=== PATIENT | female | born 1955 | race Caucasian/White ===

== ENCOUNTER → 2017-11-23 | Outpatient (CLI) | payer OTHER ==
[~2017-11-23] MED LIST: SIMV40TA3 PO
== END | disposition home or self-care (01) ==
LOC: STAR 10:52
PROVIDERS: ATTEND Orthopaedic Surgery
DX: Z01.818 Encounter for other preprocedural examination (principal); M25.562 Pain in left knee
CPT/HCPCS: 93005

== ENCOUNTER 2017-12-06 05:36 | Day surgery (SDC) | payer OTHER ==
[2017-11-23 11:27] VITALS: BP 120/78
[~2017-12-06] VITALS: Ht 170.2 cm; Wt 111.0 kg
[2017-12-06] MEDS ORDERED: LACTATED RINGERS 1,000 ML IV SCH (05:58)
[2017-12-06] MEDS ORDERED: LIDOCAINE 1%-EPI 1:100K, 30ML ONE (06:16)
[2017-12-06] MEDS ORDERED: ROPIvacaine/PF 0.5%, 30 ML ONE (06:16)
[2017-12-06] MEDS ORDERED: MIDAZOLAM 1 MG/ML, 2ML ONE (06:39)
[2017-12-06] MEDS ORDERED: FENTANYL PF 100 MCG/2ML ONE ×2 (06:39→07:47)
[2017-12-06] MEDS ORDERED: KETOROLAC 30 MG/1 ML ONE (07:00)
[2017-12-06] MEDS ORDERED: DEXAMETHASONE 4 MG/ML, 1ML ONE (07:17)
[2017-12-06] MEDS ORDERED: CEFAZOLIN 1,000 MG ONE (07:17)
[2017-12-06] MEDS ORDERED: ONDANSETRON 2MG/ML, 2ML ONE ×2 (07:17→08:22)
[2017-12-06] MEDS ORDERED: PROPOFOL 10 MG/ML, 20ML ONE (07:17)
[2017-12-06] MEDS ORDERED: ONDANSETRON ODT 8 MG PO PRN (07:30)
[2017-12-06] MEDS ORDERED: OXYcodone 5 MG/5 ML ORAL.SOL UDC PO PRN (07:30)
[2017-12-06] MEDS ORDERED: ONDANSETRON 2MG/ML, 2ML IV PRN (07:30)
[2017-12-06] MEDS ORDERED: ACETAMINOPHEN 325 MG TABLET PO PRN (07:30)
[2017-12-06] MEDS ORDERED: PROMETHAZINE 25 MG/ML, 1ML IV PRN (07:30)
[2017-12-06] MEDS ORDERED: ACETAMINOPHEN 650 MG/20.3 ML UDC ONE (07:47)
[2017-12-06] MEDS ORDERED: ACETAMINOPHEN 325 MG TABLET ONE (07:47)
[2017-12-06] MEDS: FENTANYL PF 100 MCG/2ML IV PRN ×4 (07:53→08:13)
== END 2017-12-06 10:10 | disposition home or self-care (01) ==
LOC: OUT 05:36
PROVIDERS: ATTEND Orthopaedic Surgery
DX: S83.242A Other tear of medial meniscus, current injury, left knee, initial encounter (principal); S83.282A Other tear of lateral meniscus, current injury, left knee, initial encounter; M65.862 Other synovitis and tenosynovitis, left lower leg; M94.262 Chondromalacia, left knee; E78.5 Hyperlipidemia, unspecified; X58.XXXA Exposure to other specified factors, initial encounter; Y93.89 Activity, other specified; Y92.89 Other specified places as the place of occurrence of the external cause; Y99.8 Other external cause status; Z72.89 Other problems related to lifestyle
CPT/HCPCS: 29880; J0690; J1100; J1885; J2250; J2405; J2704; J2795; J3010; J3490; J7120